=== PATIENT | male | born 1950 | race Caucasian/White ===

== ENCOUNTER 2022-04-21 09:22 | Day surgery (SDC) | payer MEDICARE, OTHER ==
[~2022-04-21 09:22] MED LIST: Propofol 200 MG/20 ML SDV ONE; Sodium Chloride 0.9% 10 ML Syringe FLUSH PRN
[2022-04-21] MEDS: Lactated Ringers 1,000 ML IV SCH (09:53)
[2022-04-21] MEDS ORDERED: Propofol 200 MG/20 ML SDV ONE (11:00)
[2022-04-21 17:48] VITALS: BP 148/87; PULSE 58
== END 2022-04-21 11:47 | disposition home or self-care (01) ==
LOC: LL.SDS 09:22
PROVIDERS: ATTEND Surgery
DX: D12.4 Benign neoplasm of descending colon (principal); K57.30 Diverticulosis of large intestine without perforation or abscess without bleeding; I10 Essential (primary) hypertension; Z88.0 Allergy status to penicillin; Z79.899 Other long term (current) drug therapy
CPT/HCPCS: 88305; J2704; J7120